=== PATIENT | female | born 2000 | race Caucasian/White ===

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

== ENCOUNTER 2023-11-06 15:14 | Inpatient (IN) | payer MEDICAID ==
[~2023-11-06] VITALS: Ht 162.6 cm; Wt 65.0 kg
[2023-11-06 17:25] LABS: BASOPHILS % (AUTO) 0.3 % (0-1); EOSINOPHILS % (AUTO) 0.4 % (0-6); HEMATOCRIT 37.6 % (35.0-45.0); HEMOGLOBIN 12.4 g/dl (12.0-16.0); LYMPHOCYTES # (AUTO) 1.6 X10'3 (1.1-4.8); LYMPHOCYTES % (AUTO) 18.3 % (21-51); MEAN CORPUSCULAR VOLUME 81.9 FL (78-98); MEAN PLATELET VOLUME 7.9 FL (7.4-10.4); MONOCYTES # (AUTO) 0.6 X10'3 (0-0.9); MONOCYTES % (AUTO) 6.6 % (2-12); NEUTROPHILS # (AUTO) 6.3 X10'3 (1.8-7.7); NEUTROPHILS % (AUTO) 74.4 % (42-75); PLATELET COUNT 338 X10'3 (140-440); RED BLOOD COUNT 4.59 X10'6 (4.20-5.60); RED CELL DISTRIBUTION WIDTH 13.3 % (11.5-14.5); WHITE BLOOD COUNT 8.5 X10'3 (4.5-11.0)
[2023-11-06 17:34] LABS: ANION GAP 12 (8-16); BLOOD UREA NITROGEN 23 MG/DL (7-18); BUN/CREATININE RATIO 27.1 (10.0-20.0); CALCIUM 9.3 MG/DL (8.5-10.1); CHLORIDE 106 MMOL/L (99-107); CREATININE 0.85 MG/DL (0.40-0.90); GLUCOSE 94 MG/DL (70-104); POTASSIUM 4.1 MMOL/L (3.5-5.1); SODIUM 144 MMOL/L (135-145); TOTAL CARBON DIOXIDE 26.2 MMOL/L (24-32); eCRCL 90 ML/MIN; eGFR 84 ML/MIN
[2023-11-06 17:36] LABS: ETHANOL < 10 MG/DL (<10)
[2023-11-06 18:16] LABS: BETA HCG,QUANTITATIVE < 1.0 mIU/ml
[2023-11-07] MEDS: LORazepam 1 MG tablet PO ONE (03:42)
[2023-11-07] MEDS: LORazepam 2 mg/ml vial IM ONE (10:35)
[2023-11-07] MEDS: haloperidol lactate 5mg/ml inj IM PRN (11:27)
[2023-11-07] MEDS: diphenhydrAMINE 50 mg/ml inj IM PRN (11:27)
[2023-11-07] MEDS ORDERED: morphine 2 MG/ML inj. syringe IV PRN (12:00)
[2023-11-07] MEDS ORDERED: potassium Cl 20 mEq SR tablet PO PRN ×2 (12:00)
[2023-11-07] MEDS ORDERED: acetaminophen 650mg rectal suppository RC PRN ×2 (12:00→12:15)
[2023-11-07] MEDS ORDERED: magnesium 4gm in 100ml NS 100 ML IV PRN (12:00)
[2023-11-07] MEDS ORDERED: bisacodyl 10mg suppository rectal RC PRN ×2 (12:00→12:15)
[2023-11-07] MEDS ORDERED: magnesium 2GM in 50ml NS 50 ML IV PRN (12:00)
[2023-11-07] MEDS ORDERED: diphenhydrAMINE 25mg capsule PO PRN ×2 (12:00→12:15)
[2023-11-07] MEDS ORDERED: potassium Cl 40MEQ/1/2NS 520ml 520 ML IV PRN (12:00)
[2023-11-07] MEDS ORDERED: magnesium hydroxide 30ml (MOM) UD suspension PO PRN ×2 (12:00→12:15)
[2023-11-07] MEDS ORDERED: mag hydrox/Alum hydrox/simeth 30ml oral suspension PO PRN ×2 (12:00→12:15)
[2023-11-07] MEDS ORDERED: metoclopramide 5 mg/ml inj IV PRN (12:00)
[2023-11-07] MEDS ORDERED: acetaminophen 325mg tablet PO PRN ×3 (12:00→12:15)
[2023-11-07] MEDS ORDERED: ondansetron/PF 4mg/2ml inj IV PRN (12:00)
[2023-11-07] MEDS ORDERED: magnesium Cl slow-release 64mg tablet PO PRN (12:00)
[2023-11-07] MEDS ORDERED: HYDROcodone/acetaminophen 5mg/325mg tablet PO PRN (12:00)
[2023-11-07] MEDS ORDERED: diphenhydrAMINE 50 mg/ml inj IV PRN ×2 (12:00→12:15)
[2023-11-07] MEDS ORDERED: diazepam inj 5 MG/ML inj. IV PRN (12:05)
[2023-11-07 13:23] LABS: APTT 29 SECONDS (22-32); PROTHROMBIN TIME 10.7 SECONDS (9.0-12.0)
[2023-11-07 13:25] LABS: CREATINE KINASE 545 U/L (26-192); LIPASE 32 U/L (16-77)
[2023-11-07 13:33] LABS: HEMOGLOBIN A1C 4.9 % (4.5-6.2)
[2023-11-07 13:40] LABS: MAGNESIUM 2.5 MG/DL (1.5-2.4); PHOSPHORUS 3.7 MG/DL (2.3-4.5); POTASSIUM 3.7 MMOL/L (3.5-5.1); PRO BRAIN NATRIURETIC PEPTIDE < 30 PG/ML (0-125)
[2023-11-07 14:00] LABS: OSMOLALITY 298 MOSM/K (280-300)
[2023-11-07] MEDS ORDERED: docusate sod 100mg capsule PO SCH (20:00)
[2023-11-07 21:00] VITALS: BP 115/71; PULSE 107; RESP 20; TEMP 98.1; O2SAT 100
[2023-11-07] MEDS: K and/or MAG REPLACEMENT MC SCH (21:00)
[2023-11-07] MEDS: ringers solution, lacted 1,000 ML IV ONE (21:00)
[2023-11-07] MEDS: heparin, porcine 5000 units/ml vial SQ SCH (21:00)
[2023-11-07] MEDS: docusate sod 100mg capsule PO SCH (21:00)
[2023-11-07] MEDS ORDERED: temazepam 15mg capsule PO PRN (21:00)
[2023-11-07] MEDS: dextrose 5%-1/2 normal saline 1,000 ML IV SCH (21:00)
[2023-11-08] MEDS: haloperidol lactate 5mg/ml inj IM ONE (03:07)
[2023-11-08] MEDS: pantoprazole 40mg Tablet.DR PO SCH (07:30)
[2023-11-08 10:00] VITALS: BP 133/83; PULSE 112; RESP 18; TEMP 98; O2SAT 99
[2023-11-08] MEDS ORDERED: diazepam inj 5 MG/ML inj. IV PRN (10:00)
[2023-11-08 11:01] LABS: BASOPHILS % (AUTO) 0.2 % (0-1); EOSINOPHILS % (AUTO) 0.7 % (0-6); HEMATOCRIT 38.9 % (35.0-45.0); HEMOGLOBIN 12.8 g/dl (12.0-16.0); LYMPHOCYTES # (AUTO) 2.2 X10'3 (1.1-4.8); LYMPHOCYTES % (AUTO) 31.4 % (21-51); MEAN CORPUSCULAR HEMOGLOBIN 26.9 PG (27.0-31.0); MEAN CORPUSCULAR HGB CONC 32.9 g/dL (33.0-36.5); MEAN CORPUSCULAR VOLUME 81.6 FL (78-98); MEAN PLATELET VOLUME 7.7 FL (7.4-10.4); MONOCYTES # (AUTO) 0.6 X10'3 (0-0.9); MONOCYTES % (AUTO) 8.3 % (2-12); NEUTROPHILS # (AUTO) 4.2 X10'3 (1.8-7.7); NEUTROPHILS % (AUTO) 59.4 % (42-75); PLATELET COUNT 346 X10'3 (140-440); RED BLOOD COUNT 4.77 X10'6 (4.20-5.60); RED CELL DISTRIBUTION WIDTH 13.1 % (11.5-14.5); WHITE BLOOD COUNT 7.1 X10'3 (4.5-11.0)
[2023-11-08 11:08] VITALS: RESP 16
[2023-11-08 11:19] LABS: ALANINE AMINOTRANSFERASE 30 U/L (12-78); ALBUMIN 4.2 G/DL (3.4-5.0); ALKALINE PHOSPHATASE 71 IU/L (46-116); ANION GAP 13 (8-16); ASPARTATE AMINO TRANSFERASE 45 U/L (10-37); BILIRUBIN,TOTAL 0.4 MG/DL (0.1-1.0); BLOOD UREA NITROGEN 22 MG/DL (7-18); BUN/CREATININE RATIO 24.7 (10.0-20.0); CALCIUM 9.6 MG/DL (8.5-10.1); CHLORIDE 104 MMOL/L (99-107); CHOL/HDL RATIO 2.8 (0.00-4.99); CHOLESTEROL 162 MG/DL (0-200); CREATININE 0.89 MG/DL (0.40-0.90); GLUCOSE 106 MG/DL (70-104); HDL CHOLESTEROL 57 MG/DL (35-60); LDL CHOLESTEROL 88 MG/DL (50-100); MAGNESIUM 2.3 MG/DL (1.5-2.4); POTASSIUM 3.7 MMOL/L (3.5-5.1); SODIUM 142 MMOL/L (135-145); TOTAL CARBON DIOXIDE 24.8 MMOL/L (24-32); TOTAL PROTEIN 8.4 G/DL (6.4-8.2); TRIGLYCERIDES 91 MG/DL (20-135); eCRCL 86 ML/MIN; eGFR 79 ML/MIN
[2023-11-08] MEDS: ringers solution, lacted 1,000 ML IV ONE (14:15)
[2023-11-08 18:00] VITALS: BP 137/91; PULSE 121; RESP 20; TEMP 98.2; O2SAT 99
[2023-11-08 20:00] VITALS: RESP 20; O2SAT 99
[2023-11-08] MEDS: levetiracetam 250mg tablet PO SCH (20:39)
[2023-11-08 22:00] VITALS: BP 121/79; PULSE 118; RESP 16; TEMP 99; O2SAT 97
[2023-11-09] MEDS: diazepam 5mg tablet PO PRN ×2 (03:41→05:36)
[2023-11-09 06:56] VITALS: BP 172/109; PULSE 112; RESP 24; TEMP 98.1; O2SAT 99
[2023-11-09 07:43] LABS: BASOPHILS % (AUTO) 0.4 % (0-1); EOSINOPHILS # (AUTO) 0.1 X10'3 (0-0.9); EOSINOPHILS % (AUTO) 1.5 % (0-6); HEMATOCRIT 40.7 % (35.0-45.0); HEMOGLOBIN 13.3 g/dl (12.0-16.0); LYMPHOCYTES # (AUTO) 2.3 X10'3 (1.1-4.8); LYMPHOCYTES % (AUTO) 32.9 % (21-51); MEAN CORPUSCULAR HEMOGLOBIN 26.7 PG (27.0-31.0); MEAN CORPUSCULAR HGB CONC 32.7 g/dL (33.0-36.5); MEAN CORPUSCULAR VOLUME 81.6 FL (78-98); MEAN PLATELET VOLUME 8.1 FL (7.4-10.4); MONOCYTES # (AUTO) 0.5 X10'3 (0-0.9); MONOCYTES % (AUTO) 7.9 % (2-12); NEUTROPHILS % (AUTO) 57.3 % (42-75); PLATELET COUNT 381 X10'3 (140-440); RED BLOOD COUNT 4.98 X10'6 (4.20-5.60); RED CELL DISTRIBUTION WIDTH 13.1 % (11.5-14.5); WHITE BLOOD COUNT 6.9 X10'3 (4.5-11.0)
[2023-11-09 08:01] LABS: ALANINE AMINOTRANSFERASE 34 U/L (12-78); ALBUMIN 4.4 G/DL (3.4-5.0); ALBUMIN/GLOBULIN RATIO 1.1 (1.1-1.5); ALKALINE PHOSPHATASE 76 IU/L (46-116); ANION GAP 11 (8-16); ASPARTATE AMINO TRANSFERASE 37 U/L (10-37); BILIRUBIN,TOTAL 0.6 MG/DL (0.1-1.0); BLOOD UREA NITROGEN 20 MG/DL (7-18); BUN/CREATININE RATIO 25.3 (10.0-20.0); CALCIUM 9.1 MG/DL (8.5-10.1); CHLORIDE 104 MMOL/L (99-107); CREATININE 0.79 MG/DL (0.40-0.90); GLUCOSE 82 MG/DL (70-104); MAGNESIUM 2.2 MG/DL (1.5-2.4); POTASSIUM 3.5 MMOL/L (3.5-5.1); SODIUM 142 MMOL/L (135-145); TOTAL CARBON DIOXIDE 26.8 MMOL/L (24-32); TOTAL PROTEIN 8.4 G/DL (6.4-8.2); eCRCL 96 ML/MIN; eGFR > 90 ML/MIN
[2023-11-09 09:14] VITALS: RESP 16
[2023-11-09] MEDS ORDERED: cloNIDine 0.1 mg tablet PO ONE (11:00)
[2023-11-09] MEDS ORDERED: NO HOME MEDS (16:33)
[2023-11-09 19:00] VITALS: BP 105/64; PULSE 99; RESP 16; TEMP 97.6; O2SAT 94
[2023-11-09 20:00] VITALS: RESP 16
[2023-11-10] MEDS ORDERED: haloperidol lactate 5mg/ml inj IM ONE (05:15)
[2023-11-10] MEDS: haloperidol lactate 5mg/ml inj IM ONE (05:31)
[2023-11-10 06:00] VITALS: BP 107/88; PULSE 100; RESP 16; TEMP 96.5; O2SAT 99
[2023-11-10 09:30] VITALS: RESP 16
[2023-11-10 10:00] VITALS: BP 124/83; PULSE 111; RESP 19; TEMP 99; O2SAT 100
[2023-11-10] MEDS ORDERED: KEP500T PO (13:12)
== END 2023-11-10 12:38 | disposition home or self-care (01) | DRG 351 ==
LOC: ER 15:15 → ED HOLD 11-07 12:05 → EEVIPCON 11-07 12:05 → EDBEDREQ 11-07 18:02 → SUR 3N 11-07 20:57
PROVIDERS: ADMIT Family Medicine; ATTEND Family Medicine
DX: M62.82 Rhabdomyolysis (principal); N17.9 Acute kidney failure, unspecified; L89.151 Pressure ulcer of sacral region, stage 1; G40.909 Epilepsy, unspecified, not intractable, without status epilepticus; Z20.822 Contact with and (suspected) exposure to COVID-19; F84.0 Autistic disorder; I10 Essential (primary) hypertension; R15.9 Full incontinence of feces; R32 Unspecified urinary incontinence; J44.9 Chronic obstructive pulmonary disease, unspecified; R68.0 Hypothermia, not associated with low environmental temperature; L30.8 Other specified dermatitis; Z88.8 Allergy status to other drugs, medicaments and biological substances
CPT/HCPCS: 36415; 71045; 80048; 80053; 80061; 80320; 82550; 83036; 83690; 83735; 83880; 83930; 84100; 84132; 84702; 85025; 85610; 85730; 87811; 93005; 99285; G0378; J1200; J1630; J1644; J2060

== ENCOUNTER 2023-12-14 09:56 | Emergency (ER) | payer MEDICAID, SELFPAY ==
[~2023-12-14] VITALS: Ht 165.1 cm; Wt 64.6 kg
[~2023-12-14 09:56] MED LIST: KEP500T PO; NO HOME MEDS
== END 2023-12-14 11:42 | disposition left against medical advice (07) ==
LOC: ER 09:56
DX: F84.0 Autistic disorder (principal); Z53.21 Procedure and treatment not carried out due to patient leaving prior to being seen by health care provider
CPT/HCPCS: 99281

== ENCOUNTER 2024-09-02 20:11 | Emergency (ER) | payer MEDICAID ==
[~2024-09-02] VITALS: Ht 160 cm; Wt 73.7 kg
[2024-09-02 20:15] VITALS: BP 154/84; PULSE 114; RESP 18; TEMP 98.2; O2SAT 100
== END 2024-09-02 21:08 | disposition left against medical advice (07) ==
LOC: ER 20:12
DX: Z53.21 Procedure and treatment not carried out due to patient leaving prior to being seen by health care provider (principal); Z88.8 Allergy status to other drugs, medicaments and biological substances

== ENCOUNTER 2024-12-26 23:47 | Emergency (ER) | payer MEDICAID ==
[~2024-12-26] VITALS: Ht 172.7 cm; Wt 100.0 kg
[2024-12-26 23:55] VITALS: PULSE 80; RESP 18; TEMP 98.2; O2SAT 94
--- NOTE | 2024-12-27 00:49 | Physician Documentation ---
History of Present Illness ~ General Chief Complaint: Medication Request Stated Complaint: MCKAYLA GARDNER Time Seen by MD: 00:48 OK to notify your PCP?: Yes Primary Medical Doctor: unknown Source: family Mode of Arrival: Dropped Off Exam Limitations: clinical condition History of Present Illness Initial Comments 24 year old female with history of autism and non verbal presents to the emergency department brought in by family to be placed on a 5150 hold. Family states that patient was told to come here to be put on a hold by [employer] due to her hitting her head and hurting herself. Family is concerned about her behavior and that patient is a danger to herself. She is not currently taking any medications for her symptoms. Medication Reconciliation Allergies: Coded Allergies: nystatin (Verified Allergy, Unknown, 12/14/23) Scheduled Levetiracetam (Keppra), 1 TAB PO Q12H Quetiapine Fumarate (Seroquel), 1 TAB PO HS Miscellaneous Medications Home Med List (No Home Medications), (Reported) Past Medical History Past Medical History: *ENT*, UTI, *PSYCH* Past Surgical History: noncontributory Alcohol Use: None Drug Use: none Lives with: Mother Lives In: Home Review of Systems All Other Systems at this time: Reviewed and Negative ROS As stated above in the HPI, otherwise all systems are reviewed and negative. Physical Exam Physical Exam Vital Signs: RN Vital Signs have been reviewed: Yes, Temperature: 98.2, Source: Temporal, Heart Rate: 80, Respiratory Rate: 18, Pulse Oximetry: 94, Weight: 100.000 Oxygen Flow Rate: 0 Pulse Oximetry Reflects: adequate oxygenation Physical Exam General: Patient is autistic. The patient is well developed, well nourished, nontoxic appearing and is in no acute distress. Skin: [place], warm and dry with no rashes. HEENT: Head was normocephalic and atraumatic. Eyes - pupils equal, round, minoo ctive to light and accommodation. Extraocular movements were intact. Conjunctivae were nonicteric. Ears - bilateral tympanic membranes were normal. The mouth and oropharynx were clear with moist mucous membranes. There were no pharyngeal exudates or erythema. Neck: Supple and nontender. There was no jugular venous distention, lymphadenopathy, thyromegaly or masses. Chest: Clear to auscultation bilaterally without wheezes, rales or rhonchi. No accessory muscle use. No dullness to percussion. Heart: Rate regular and rhythmic. S1, S2. No murmurs. Palpation of the chest wall was normal. No rubs or thrills. Abdomen: Soft, nontender and nondistended. Positive bowel sounds. No guarding or rebound. No hepatosplenomegaly or palpable masses. Extremities: Contusions to feet. No cyanosis, clubbing or edema. The patient moves all extremities. Pulses were equal and symmetric. Neurologic: Cranial nerves II-XII were intact. Sensation was intact to light touch throughout. Motor strength was 5/5 in all four extremities. Deep tendon reflexes were intact in both upper and lower extremities. Psychologic: The patient was oriented to person, place and time. The patient demonstrated appropriate judgement and insight. Progress Results/Orders Reviewed/noted all lab results: Yes Results/Orders Completed Orders - JUSTIN BRUNO MD Quetiapine Tablet (Seroquel Tablet) (12/27/24 08:00) Quetiapine Fumarate Tablet (Seroquel) (12/27/24 01:13) Quetiapine Tablet (Seroquel Tablet) (12/27/24 01:17) Medications Received in ER Medications (Trade) Dose Ordered Sig/Bharathi Route PRN Reason Start Time Stop Time Status Last Admin Dose Admin (SEROquel tablet) 25 mg ONCE STAT PO 12/27/24 01:17 12/27/24 01:18 DC 12/27/24 01:27 25 MG Vital Signs 12/26/24 23:55 Temp 98.2 Pulse 80 Resp 18 Pulse Ox 94 O2 Flow Rate 0 Re-Evaluation Re-Evaluation : Re-Evaluation: Resolved Progress Of note patient was refereed to [facility] only due to getting her seen by a psych but patient has a wonderful follow up plan at [facility] so physician declined 5150 at this time. Patient is autistic and keeping a patient in the ER seems to be excessively traumatic when the patient can be seen on the outpatient basis with a psychiatrist who needs to started the patient on some medications for behavioral issues. Recommended possible SSRI to the family in the interim for nighttime patient will receive Seroquel however prison maintenance is being deferred to the psychiatrist. 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 At [facility] ER psych holds patients do not see a psychiatrist. It is inhumane to keep an autistic persons held up in ER on a 5150 hold. Referrals: NO PRIMARY CARE PROVIDER (PCP) Prescriptions Quetiapine Fumarate (Seroquel) 50 Mg Tablet 1 TAB PO HS for 30 Days, #30 TAB 0 Refills Prov: JUSTIN BRUNO MD 12/27/24 Education Educated: Patient Educated regarding: diagnosis, prognosis, need for follow up, other Signature Scribe Signature: Scribed for Justin Bruno MD by Oleksandr Allen . 12/27/24 01:18 Attestation: The note accurately reflects work and decisions made by me.Justin Bruno MD 12/27/24 00:49 JUSTIN BRUNO MD Dec 27, 2024 00:49 OLEKSANDR LOAIZA Dec 27, 2024 01:18
[2024-12-27] MEDS ORDERED: QUET50TA PO (01:14)
[2024-12-27] MEDS: QUEtiapine 25mg tablet PO STA (01:21)
[2024-12-27] MEDS: quetiapine 100mg tablet PO STA (01:25)
[2024-12-27] MEDS ORDERED: QUEtiapine 25mg tablet PO SCH (08:00)
== END 2024-12-27 01:36 | disposition home or self-care (01) ==
LOC: ER 23:47
DX: F84.0 Autistic disorder (principal); Z88.1 Allergy status to other antibiotic agents; Z79.899 Other long term (current) drug therapy
CPT/HCPCS: 99283